=== PATIENT | female | born 1965 | race Caucasian/White ===

== ENCOUNTER 2019-02-13 15:41 | Inpatient (IN) ==
[2019-02-13] MEDS ORDERED: traZODone 50 MG TABLET PO PRN (16:24)
[2019-02-13] MEDS ORDERED: ONDANSETRON 4 MG/2 ML VIAL IV PRN (16:24)
[2019-02-13] MEDS ORDERED: DOCUSATE SODIUM 100 MG CAPSULE PO PRN (16:24)
[2019-02-13] MEDS ORDERED: PROMETHAZINE 25 MG/1 ML VIAL IM PRN (16:24)
[2019-02-13] MEDS ORDERED: cloNIDine 0.1 MG TABLET PO PRN (16:28)
[2019-02-13] MEDS ORDERED: HydrOXYzine PAMOATE 25 MG CAPSULE PO PRN (16:28)
[2019-02-13] MEDS ORDERED: LORazepam 2 MG/1 ML VIAL IV PRN (16:28)
[2019-02-13] MEDS ORDERED: DICYCLOMINE 10 MG CAPSULE PO PRN (16:28)
[2019-02-13 17:21] LABS: Basophils # 0.1 10*3/uL (0.0-0.2); Basophils % 0.7 % (0.0-0.8); Eosinophils # 0.1 10*3/uL (0.0-0.87); Eosinophils % 0.6 % (0.00-10.9); Hematocrit 43.5 VOL% (35.7-47.0); Immature Granulocytes % 0.3 %; Immature Granulocytes Absolute 0.04 #; Lymphocytes % 24.7 % (21.3-54.2); Mean Corpuscular HGB Conc 32.2 GM/DL (32-36); Mean Platelet Volume 11.5 FL (9.6-12.0); Monocytes % 6.2 % (1.7-12.7); Neutrophils % 67.5 % (38.7-73.9); Platelet Count 344 T/CUMM (130-400); Red Blood Count 5.06 MC/CUMM (3.8-5.5); Red Cell Distribution Width 13.8 % (9.3-17.3)
[2019-02-13 17:50] LABS: Alanine Aminotransferase 19 U/L (13-56); Albumin 3.7 G/DL (3.4-5.0); Alkaline Phosphatase 110 U/L (45-117); Aspartate Amino Transferase 20 U/L (0-37); Bilirubin,Total < 0.39 MG/DL (0.2-1.0); Blood Urea Nitrogen 13 MG/DL (7-18); Calcium 9.1 MG/DL (8.5-10.1); Glucose 92 MG/DL (74-106); HDL Cholesterol 66 MG/DL (40-60); Osmolality,Calculated 272.8 MOS/KG (273-304); Risk Ratio 2.65; Total Protein 8.1 G/DL (6.4-8.3); Triglycerides 81 MG/DL (2-150); VLDL CHOLESTEROL 16.2 MG/DL
[2019-02-13 17:55] LABS: Apearance,Urine CLEAR (Clear); Bilirubin,Urine Negative (Negative); Blood, Urine Negative (Negative); Glucose,Urine (UA) Negative (Negative); Ketones,Urine Negative (Negative); Nitrite,Urine Negative (Negative); Protein,Urine Negative; Squamous Epithelial Cell,Urine Occasional /HPF (0-10); Transitional Epi Cells,Urine Occasional /HPF (<1); Urine Color Straw (Yellow); Urine Specific Gravity 1.006 (1.001-1.035); Urine Urobilinogen < 2.0 EU/DL (0.2-1.0); WBC,Urine 2 /HPF (0-6)
[2019-02-13 18:03] LABS: Barbiturates Screen,Urine Negative (Negative); Benzodiazepines Screen,Urine Negative (Negative); Cannabinoid Screen,Urine Negative (Negative); Opiate Screen,Urine Negative (Negative); Phencyclidine Screen,Urine Negative (Negative)
[2019-02-13] MEDS: LACTATED RINGERS 1,000 ML IV SCH (18:34)
[2019-02-13] MEDS: BUPRENORPHINE SL TAB 2 MG TABLET SL SCH (18:34)
[2019-02-13] MEDS: ENOXAPARIN 40 MG/0.4 ML SYRINGE SUBCUT SCH (21:50)
[2019-02-13] MEDS: NICOTINE 21 MG/24 HR PATCH TRANSDERM PRN (21:54)
[2019-02-14] MEDS: BUPRENORPHINE SL TAB 2 MG TABLET SL SCH ×3 (00:24→17:07)
[2019-02-14 05:55] LABS: Basophils # 0.1 10*3/uL (0.0-0.2); Basophils % 1.1 % (0.0-0.8); Eosinophils # 0.2 10*3/uL (0.0-0.87); Eosinophils % 2.2 % (0.00-10.9); Immature Granulocytes % 0.5 %; Immature Granulocytes Absolute 0.04 #; Lymphocytes # 3.2 10*3/uL (1.4-4.0); Lymphocytes % 43.1 % (21.3-54.2); Mean Corpuscular HGB Conc 31.1 GM/DL (32-36); Mean Corpuscular Volume 87.8 FL (87-102); Mean Platelet Volume 11.4 FL (9.6-12.0); Monocytes % 6.9 % (1.7-12.7); Neutrophils % 46.2 % (38.7-73.9); Red Blood Count 4.33 MC/CUMM (3.8-5.5); Red Cell Distribution Width 13.8 % (9.3-17.3)
[2019-02-14 05:56] LABS: Hemoglobin 11.8 GM/DL (12.0-16.0); White Blood Count 7.4 T/CUMM (4-12)
[2019-02-14 05:57] LABS: Platelet Count 228 T/CUMM (130-400)
[2019-02-14 06:18] LABS: Calcium 8.8 MG/DL (8.5-10.1); Osmolality,Calculated 285.8 MOS/KG (273-304)
[2019-02-14] MEDS: LACTATED RINGERS 1,000 ML IV SCH ×2 (08:18→21:14)
[2019-02-14] MEDS: ACETAMINOPHEN 325 MG TABLET PO PRN (08:18)
[2019-02-14] MEDS: PANTOPRAZOLE 40 MG TABLET PO SCH (08:18)
[2019-02-14] MEDS ORDERED: GABAPENTIN 600 MG TABLET PO SCH ×2 (13:00→15:00)
[2019-02-14] MEDS: GABAPENTIN 100 MG CAPSULE PO SCH ×2 (15:03→21:08)
[2019-02-14] MEDS: POTASSIUM CHLORIDE 20 MEQ TABLET PO PRN ×3 (15:03→21:09)
[2019-02-14] MEDS: ENOXAPARIN 40 MG/0.4 ML SYRINGE SUBCUT SCH (21:10)
[2019-02-14] MEDS: NICOTINE 21 MG/24 HR PATCH TRANSDERM PRN (21:11)
[2019-02-15] MEDS: POTASSIUM CHLORIDE 20 MEQ TABLET PO PRN (00:09)
[2019-02-15] MEDS: BUPRENORPHINE SL TAB 2 MG TABLET SL SCH ×3 (01:19→17:00)
[2019-02-15 03:52] LABS: Basophils # 0.1 10*3/uL (0.0-0.2); Basophils % 0.9 % (0.0-0.8); Eosinophils # 0.2 10*3/uL (0.0-0.87); Eosinophils % 2.1 % (0.00-10.9); Hematocrit 36.3 VOL% (35.7-47.0); Hemoglobin 11.4 GM/DL (12.0-16.0); Immature Granulocytes % 0.4 %; Immature Granulocytes Absolute 0.03 #; Lymphocytes # 3.4 10*3/uL (1.4-4.0); Lymphocytes % 42.7 % (21.3-54.2); Mean Corpuscular HGB Conc 31.4 GM/DL (32-36); Mean Corpuscular Volume 88.3 FL (87-102); Mean Platelet Volume 11.8 FL (9.6-12.0); Monocytes % 6.7 % (1.7-12.7); Neutrophils % 47.2 % (38.7-73.9); Platelet Count 222 T/CUMM (130-400); Red Blood Count 4.11 MC/CUMM (3.8-5.5)
[2019-02-15 04:05] LABS: Calcium 8.5 MG/DL (8.5-10.1); Osmolality,Calculated 287.7 MOS/KG (273-304)
[2019-02-15] MEDS: GABAPENTIN 100 MG CAPSULE PO SCH ×3 (09:24→20:55)
[2019-02-15] MEDS: PANTOPRAZOLE 40 MG TABLET PO SCH (09:24)
[2019-02-15] MEDS: ACETAMINOPHEN 325 MG TABLET PO PRN (19:05)
[2019-02-15] MEDS: NICOTINE 21 MG/24 HR PATCH TRANSDERM PRN (20:53)
[2019-02-15] MEDS: ENOXAPARIN 40 MG/0.4 ML SYRINGE SUBCUT SCH (20:53)
[2019-02-16] MEDS: BUPRENORPHINE SL TAB 2 MG TABLET SL SCH (04:28)
[2019-02-16 05:36] LABS: Basophils # 0.1 10*3/uL (0.0-0.2); Basophils % 0.8 % (0.0-0.8); Eosinophils # 0.2 10*3/uL (0.0-0.87); Eosinophils % 1.9 % (0.00-10.9); Hematocrit 39.1 VOL% (35.7-47.0); Hemoglobin 12.2 GM/DL (12.0-16.0); Immature Granulocytes % 0.5 %; Immature Granulocytes Absolute 0.05 #; Lymphocytes # 2.1 10*3/uL (1.4-4.0); Lymphocytes % 20.2 % (21.3-54.2); Mean Corpuscular HGB Conc 31.2 GM/DL (32-36); Mean Corpuscular Volume 87.9 FL (87-102); Mean Platelet Volume 11.8 FL (9.6-12.0); Monocytes % 8.3 % (1.7-12.7); Neutrophils % 68.3 % (38.7-73.9); Platelet Count 219 T/CUMM (130-400); Red Blood Count 4.45 MC/CUMM (3.8-5.5); Red Cell Distribution Width 13.9 % (9.3-17.3); White Blood Count 10.2 T/CUMM (4-12)
[2019-02-16 06:18] LABS: Calcium 8.9 MG/DL (8.5-10.1); Osmolality,Calculated 280.1 MOS/KG (273-304)
[2019-02-16] MEDS: GABAPENTIN 100 MG CAPSULE PO SCH (09:14)
[2019-02-16] MEDS: PANTOPRAZOLE 40 MG TABLET PO SCH (09:14)
[2019-02-16] MEDS: LACTATED RINGERS 1,000 ML IV SCH (09:14)
[2019-02-16 12:14] VITALS: BP 142/82
== END 2019-02-16 14:12 | DRG 773 ==
LOC: SUATTDRO 16:58 → N.4E 16:58
PROVIDERS: ADMIT Internal Medicine Cardiovascular Disease; ATTEND Internal Medicine